=== PATIENT | female | born 1955 | race Caucasian/White ===

== ENCOUNTER 2020-06-26 05:39 | Inpatient (IN) ==
[2020-06-26 06:54] LABS: Basophils # 0.1 10*3/uL (0.0-0.2); Basophils % 0.5 % (0.0-0.8); Eosinophils # 0.2 10*3/uL (0.0-0.87); Hematocrit 38.2 VOL% (35.7-47.0); Hemoglobin 12.2 GM/DL (12.0-16.0); Immature Granulocytes % 0.3 %; Immature Granulocytes Absolute 0.05 #; Lymphocytes # 2.4 10*3/uL (1.4-4.0); Lymphocytes % 15.9 % (21.3-54.2); Mean Corpuscular HGB Conc 31.9 GM/DL (32-36); Mean Corpuscular Volume 95.3 FL (87-102); Mean Platelet Volume 10.2 FL (9.6-12.0); Monocytes % 10.4 % (1.7-12.7); Neutrophils % 71.9 % (38.7-73.9); Platelet Count 657 T/CUMM (130-400); Red Blood Count 4.01 MC/CUMM (3.8-5.5); White Blood Count 15.1 T/CUMM (4-12)
[2020-06-26 07:16] LABS: Bilirubin,Urine Negative (Negative); Blood, Urine Negative (Negative); Glucose,Urine (UA) Negative (Negative); Ketones,Urine Negative (Negative); Nitrite,Urine Negative (Negative); Protein,Urine Negative; Urine Appearance Slightly Hazy (Clear); Urine Color Yellow (Yellow); Urine Specific Gravity 1.014 (1.001-1.035); Urine Urobilinogen < 2.0 EU/DL (0.2-1.0)
[2020-06-26 07:17] LABS: Albumin 3.6 G/DL (3.4-5.0); Bilirubin,Total 0.4 MG/DL (0.2-1.0); Calcium 9.3 MG/DL (8.5-10.1); Osmolality,Calculated 278.7 MOS/KG (273-304); Potassium 3.5 MMOL/L (3.5-5.1); Total Protein 8.2 G/DL (6.4-8.3)
[2020-06-26 07:31] LABS: Barbiturates Screen,Urine Negative (Negative); Benzodiazepines Screen,Urine Positive (Negative); Cannabinoid Screen,Urine Negative (Negative); Opiate Screen,Urine Negative (Negative); Phencyclidine Screen,Urine Negative (Negative)
[2020-06-26 07:32] LABS: RBC,Urine 1 /HPF (0-4); Squamous Epithelial Cell,Urine Rare /HPF (0-10); WBC,Urine 2 /HPF (0-6)
[2020-06-26 07:33] LABS: Bacteria,Urine Moderate /HPF (Few)
[2020-06-26 08:02] LABS: Hypochromasia Slight; Microcytosis 1+
[2020-06-26 08:03] LABS: Ovalocytes Slight; Platelet Estimate Increased
[2020-06-26] MEDS ORDERED: ATROPINE 1 MG/10 ML SYRINGE IV STA (11:04)
[2020-06-26] MEDS ORDERED: SODIUM CHLORIDE 0.9% 1,000 ML IV STA (11:04)
[2020-06-26] MEDS ORDERED: LEVOFLOXACIN INJ 750 MG in PREMIX 1 EACH IV STA (11:34)
[2020-06-26 11:35] LABS: Salicylate < 2.8 MG/DL (2.8-20)
[2020-06-26 11:37] LABS: Acetaminophen < 2.0 UG/ML (10-30)
[2020-06-26 13:37] LABS: Basophils # 0.1 10*3/uL (0.0-0.2); Basophils % 0.5 % (0.0-0.8); Eosinophils # 0.2 10*3/uL (0.0-0.87); Eosinophils % 1.3 % (0.00-10.9); Hematocrit 37.5 VOL% (35.7-47.0); Immature Granulocytes % 0.3 %; Immature Granulocytes Absolute 0.03 #; Lymphocytes # 2.5 10*3/uL (1.4-4.0); Mean Corpuscular Volume 94.9 FL (87-102); Mean Platelet Volume 11.3 FL (9.6-12.0); Monocytes % 11.8 % (1.7-12.7); Neutrophils % 65.1 % (38.7-73.9); Platelet Count 471 T/CUMM (130-400); Red Blood Count 3.95 MC/CUMM (3.8-5.5); Red Cell Distribution Width 14.1 % (9.3-17.3); White Blood Count 11.7 T/CUMM (4-12)
[2020-06-26] MEDS ORDERED: ALBUTEROL 2.5 MG/3 ML NEB RESP TX PRN (15:00)
[2020-06-26] MEDS: SODIUM CHLORIDE 0.9% 1,000 ML IV SCH ×2 (16:36→22:30)
[2020-06-26] MEDS: ENOXAPARIN 40 MG/0.4 ML SYRINGE SUBCUT SCH (17:07)
[2020-06-26] MEDS: PANTOPRAZOLE 40 MG VIAL IV SCH (17:07)
[2020-06-26 19:50] LABS: Basophils # 0.1 10*3/uL (0.0-0.2); Basophils % 0.4 % (0.0-0.8); Eosinophils # 0.2 10*3/uL (0.0-0.87); Eosinophils % 1.2 % (0.00-10.9); Hemoglobin 10.2 GM/DL (12.0-16.0); Immature Granulocytes % 0.3 %; Immature Granulocytes Absolute 0.04 #; Lymphocytes % 15.9 % (21.3-54.2); Mean Corpuscular HGB Conc 30.9 GM/DL (32-36); Mean Corpuscular Volume 99.4 FL (87-102); Mean Platelet Volume 10.1 FL (9.6-12.0); Monocytes % 14.6 % (1.7-12.7); Neutrophils % 67.6 % (38.7-73.9); Platelet Count 387 T/CUMM (130-400); Red Blood Count 3.32 MC/CUMM (3.8-5.5); Red Cell Distribution Width 14.1 % (9.3-17.3); White Blood Count 12.4 T/CUMM (4-12)
[2020-06-26 20:08] LABS: Calcium 8.1 MG/DL (8.5-10.1); Osmolality,Calculated 277.7 MOS/KG (273-304); Potassium 3.4 MMOL/L (3.5-5.1)
[2020-06-26] MEDS ORDERED: HALOPERIDOL 5 MG/ML AMP IM ONE (20:19)
[2020-06-26] MEDS ORDERED: SODIUM CHLORIDE 0.9% 1,000 ML IV ONE (23:35)
[2020-06-26] MEDS ORDERED: PHENYLEPHRINE DRIP 40 MG/250 ML PREMIX IV PRN (23:35)
[2020-06-26 23:44] LABS: Hematocrit 29.7 VOL% (35.7-47.0); Hemoglobin 9.5 GM/DL (12.0-16.0)
[2020-06-27 00:28] LABS: Bilirubin,Urine Negative (Negative); Blood, Urine Moderate mg/dL (Negative); Glucose,Urine (UA) Negative (Negative); Ketones,Urine Negative (Negative); Nitrite,Urine Negative (Negative); Protein,Urine Negative; Urine Appearance Slightly Hazy (Clear); Urine Color Straw (Yellow); Urine Specific Gravity 1.005 (1.001-1.035); Urine Urobilinogen < 2.0 EU/DL (0.2-1.0)
[2020-06-27] MEDS ORDERED: MORPHINE 4 MG/1 ML VIAL IV ONE (00:28)
[2020-06-27] MEDS ORDERED: HYDROmorphone 2 MG/1 ML VIAL IV ONE (00:30)
[2020-06-27 00:39] LABS: Bacteria,Urine Trace /HPF (Few); Squamous Epithelial Cell,Urine Few /HPF (0-10); WBC,Urine 15-20 /HPF (0-6)
[2020-06-27] MEDS: HALOPERIDOL 5 MG/ML AMP IM PRN ×3 (02:39→10:41)
[2020-06-27 03:43] LABS: Basophils % 0.4 % (0.0-0.8); Eosinophils # 0.1 10*3/uL (0.0-0.87); Eosinophils % 1.2 % (0.00-10.9); Hematocrit 28.8 VOL% (35.7-47.0); Hemoglobin 9.1 GM/DL (12.0-16.0); Immature Granulocytes % 0.3 %; Immature Granulocytes Absolute 0.03 #; Lymphocytes # 2.1 10*3/uL (1.4-4.0); Lymphocytes % 22.3 % (21.3-54.2); Mean Corpuscular HGB Conc 31.6 GM/DL (32-36); Mean Corpuscular Volume 97.3 FL (87-102); Mean Platelet Volume 10.1 FL (9.6-12.0); Neutrophils % 63.8 % (38.7-73.9); Platelet Count 381 T/CUMM (130-400); Red Blood Count 2.96 MC/CUMM (3.8-5.5); Red Cell Distribution Width 14.1 % (9.3-17.3); White Blood Count 9.4 T/CUMM (4-12)
[2020-06-27 04:06] LABS: Albumin 2.8 G/DL (3.4-5.0); Bilirubin,Total 0.5 MG/DL (0.2-1.0); Osmolality,Calculated 277.5 MOS/KG (273-304); Potassium 3.2 MMOL/L (3.5-5.1); Total Protein 6.4 G/DL (6.4-8.3)
[2020-06-27] MEDS ORDERED: POTASSIUM CHLORIDE RIDER 20 MEQ in PREMIX 1 EACH IV PRN (05:27)
[2020-06-27] MEDS ORDERED: MAGNESIUM SULF RIDER 2 GM in PREMIX 1 EACH IV PRN (05:27)
[2020-06-27] MEDS ORDERED: MAGNESIUM SULF RIDER 4 GM in PREMIX 1 EACH IV PRN (05:27)
[2020-06-27] MEDS: ACETAMINOPHEN 325 MG TABLET PO PRN ×3 (08:28→21:33)
[2020-06-27] MEDS ORDERED: LEVOFLOXACIN INJ 500 MG in PREMIX 1 EACH IV SCH (09:00)
[2020-06-27] MEDS: LEVOFLOXACIN INJ 750 MG in PREMIX 1 EACH IV SCH (10:14)
[2020-06-27] MEDS ORDERED: LOPERAMIDE 1 MG/7.5 ML 30 ML BOTTLE PO PRN (10:46)
[2020-06-27] MEDS ORDERED: LEVOFLOXACIN INJ 750 MG in PREMIX 1 EACH IV SCH (11:00)
[2020-06-27] MEDS: SODIUM CHLORIDE 0.9% 1,000 ML IV SCH ×3 (11:06→22:48)
[2020-06-27] MEDS: ESCITALOPRAM 10 MG TABLET PO SCH (11:06)
[2020-06-27] MEDS: METOPROLOL TARTRATE 25 MG TABLET PO SCH ×2 (11:06→21:33)
[2020-06-27] MEDS: VANCOMYCIN INJ 1,000 MG in SODIUM CHLORIDE 0.9% 250 ML IV SCH ×2 (12:44→21:34)
[2020-06-27] MEDS: ONDANSETRON 4 MG/2 ML VIAL IV PRN (13:39)
[2020-06-27] MEDS ORDERED: LOPERAMIDE 2 MG CAPSULE PO PRN (15:00)
[2020-06-27] MEDS: ENOXAPARIN 40 MG/0.4 ML SYRINGE SUBCUT SCH (17:31)
[2020-06-27] MEDS: PANTOPRAZOLE 40 MG VIAL IV SCH (17:34)
[2020-06-28 05:06] LABS: Basophils # 0.1 10*3/uL (0.0-0.2); Basophils % 0.4 % (0.0-0.8); Eosinophils % 0.1 % (0.00-10.9); Hematocrit 30.5 VOL% (35.7-47.0); Hemoglobin 9.4 GM/DL (12.0-16.0); Immature Granulocytes % 0.5 %; Immature Granulocytes Absolute 0.06 #; Lymphocytes # 1.7 10*3/uL (1.4-4.0); Lymphocytes % 14.7 % (21.3-54.2); Mean Corpuscular HGB Conc 30.8 GM/DL (32-36); Mean Corpuscular Volume 98.4 FL (87-102); Mean Platelet Volume 11.2 FL (9.6-12.0); Monocytes % 12.9 % (1.7-12.7); Neutrophils % 71.4 % (38.7-73.9); Platelet Count 340 T/CUMM (130-400); White Blood Count 11.6 T/CUMM (4-12)
[2020-06-28 05:13] LABS: Calcium 8.8 MG/DL (8.5-10.1); Osmolality,Calculated 279.1 MOS/KG (273-304); Potassium 3.4 MMOL/L (3.5-5.1)
[2020-06-28] MEDS: SODIUM CHLORIDE 0.9% 1,000 ML IV SCH ×2 (08:11→16:06)
[2020-06-28] MEDS: METOPROLOL TARTRATE 25 MG TABLET PO SCH ×2 (08:56→20:20)
[2020-06-28] MEDS: ESCITALOPRAM 10 MG TABLET PO SCH (08:57)
[2020-06-28] MEDS: VANCOMYCIN INJ 1,000 MG in SODIUM CHLORIDE 0.9% 250 ML IV SCH (08:57)
[2020-06-28] MEDS: ACETAMINOPHEN 325 MG TABLET PO PRN ×2 (10:15→15:30)
[2020-06-28] MEDS: LEVOFLOXACIN INJ 750 MG in PREMIX 1 EACH IV SCH (10:57)
[2020-06-28] MEDS: ENOXAPARIN 40 MG/0.4 ML SYRINGE SUBCUT SCH (20:20)
[2020-06-29] MEDS: SODIUM CHLORIDE 0.9% 1,000 ML IV SCH (00:21)
[2020-06-29 05:47] LABS: Osmolality,Calculated 275.4 MOS/KG (273-304); Potassium 2.6 MMOL/L (3.5-5.1)
[2020-06-29] MEDS: POTASSIUM CHLORIDE RIDER 10 MEQ in PREMIX 1 EACH IV PRN ×7 (06:24→22:00)
[2020-06-29] MEDS: METOPROLOL TARTRATE 25 MG TABLET PO SCH ×2 (08:21→20:34)
[2020-06-29] MEDS: ESCITALOPRAM 10 MG TABLET PO SCH (08:21)
[2020-06-29] MEDS: LEVOFLOXACIN 500 MG TABLET PO SCH (08:21)
[2020-06-29] MEDS: ENOXAPARIN 40 MG/0.4 ML SYRINGE SUBCUT SCH (20:34)
[2020-06-30] MEDS: SODIUM CHLORIDE 0.9% 1,000 ML IV SCH ×2 (00:05→23:21)
[2020-06-30] MEDS: POTASSIUM CHLORIDE RIDER 10 MEQ in PREMIX 1 EACH IV PRN ×5 (00:05→17:16)
[2020-06-30 06:29] LABS: Calcium 9.4 MG/DL (8.5-10.1); Osmolality,Calculated 271.7 MOS/KG (273-304); Potassium 3.4 MMOL/L (3.5-5.1)
[2020-06-30] MEDS ORDERED: DEXAMETHASONE 4 MG/1 ML VIAL IV SCH (09:00)
[2020-06-30] MEDS: LEVOFLOXACIN 500 MG TABLET PO SCH (09:09)
[2020-06-30] MEDS: METOPROLOL TARTRATE 25 MG TABLET PO SCH ×2 (09:09→21:23)
[2020-06-30] MEDS: CHOLECALCIFEROL 1,000 UNIT TABLET PO SCH (09:09)
[2020-06-30] MEDS: ASCORBIC ACID 500 MG TABLET PO SCH ×2 (09:09→21:23)
[2020-06-30] MEDS: ZINC GLUCONATE 50 MG TABLET PO SCH (09:09)
[2020-06-30] MEDS: ESCITALOPRAM 10 MG TABLET PO SCH (09:09)
[2020-06-30] MEDS: ONDANSETRON 4 MG/2 ML VIAL IV PRN ×2 (11:02→17:16)
[2020-06-30] MEDS: ENOXAPARIN 40 MG/0.4 ML SYRINGE SUBCUT SCH (21:23)
[2020-07-01 05:28] LABS: Basophils # 0.1 10*3/uL (0.0-0.2); Eosinophils # 0.2 10*3/uL (0.0-0.87); Eosinophils % 2.2 % (0.00-10.9); Hematocrit 31.5 VOL% (35.7-47.0); Immature Granulocytes % 0.4 %; Immature Granulocytes Absolute 0.04 #; Lymphocytes # 3.4 10*3/uL (1.4-4.0); Lymphocytes % 33.4 % (21.3-54.2); Mean Corpuscular HGB Conc 31.7 GM/DL (32-36); Mean Corpuscular Volume 97.2 FL (87-102); Mean Platelet Volume 11.1 FL (9.6-12.0); Monocytes % 10.9 % (1.7-12.7); Neutrophils % 52.1 % (38.7-73.9); Platelet Count 386 T/CUMM (130-400); Red Blood Count 3.24 MC/CUMM (3.8-5.5); Red Cell Distribution Width 14.5 % (9.3-17.3); White Blood Count 10.1 T/CUMM (4-12)
[2020-07-01 05:49] LABS: Ferritin 159.8 ng/ml (8-252)
[2020-07-01 05:55] LABS: Bilirubin,Total 0.6 MG/DL (0.2-1.0); Calcium 9.1 MG/DL (8.5-10.1); Osmolality,Calculated 273.5 MOS/KG (273-304); Potassium 3.2 MMOL/L (3.5-5.1); Total Protein 6.8 G/DL (6.4-8.3)
[2020-07-01] MEDS: METOPROLOL TARTRATE 25 MG TABLET PO SCH ×2 (08:54→21:04)
[2020-07-01] MEDS: ONDANSETRON 4 MG/2 ML VIAL IV PRN (08:54)
[2020-07-01] MEDS: ASCORBIC ACID 500 MG TABLET PO SCH ×2 (08:54→21:04)
[2020-07-01] MEDS: LEVOFLOXACIN 500 MG TABLET PO SCH (08:54)
[2020-07-01] MEDS: ZINC GLUCONATE 50 MG TABLET PO SCH (08:54)
[2020-07-01] MEDS: CHOLECALCIFEROL 1,000 UNIT TABLET PO SCH (08:54)
[2020-07-01] MEDS: ESCITALOPRAM 10 MG TABLET PO SCH (08:54)
[2020-07-01] MEDS: POTASSIUM CHLORIDE 20 MEQ TABLET PO PRN ×4 (15:38→23:56)
[2020-07-01] MEDS: ENOXAPARIN 40 MG/0.4 ML SYRINGE SUBCUT SCH (21:04)
[2020-07-01] MEDS: SODIUM CHLORIDE 0.9% 1,000 ML IV SCH (21:07)
[2020-07-02] MEDS: ACETAMINOPHEN 325 MG TABLET PO PRN ×2 (01:06→17:06)
[2020-07-02 07:02] LABS: Bilirubin,Total 0.8 MG/DL (0.2-1.0); Calcium 9.4 MG/DL (8.5-10.1); Osmolality,Calculated 274.5 MOS/KG (273-304); Potassium 3.7 MMOL/L (3.5-5.1); Total Protein 6.9 G/DL (6.4-8.3)
[2020-07-02 07:10] LABS: Basophils # 0.1 10*3/uL (0.0-0.2); Basophils % 0.7 % (0.0-0.8); Eosinophils # 0.2 10*3/uL (0.0-0.87); Eosinophils % 2.3 % (0.00-10.9); Hematocrit 34.1 VOL% (35.7-47.0); Hemoglobin 10.9 GM/DL (12.0-16.0); Immature Granulocytes % 0.6 %; Immature Granulocytes Absolute 0.06 #; Lymphocytes # 3.4 10*3/uL (1.4-4.0); Lymphocytes % 33.5 % (21.3-54.2); Mean Corpuscular Volume 96.1 FL (87-102); Mean Platelet Volume 11.7 FL (9.6-12.0); Monocytes % 10.7 % (1.7-12.7); Neutrophils % 52.2 % (38.7-73.9); Platelet Count 316 T/CUMM (130-400); Red Blood Count 3.55 MC/CUMM (3.8-5.5); Red Cell Distribution Width 14.7 % (9.3-17.3); White Blood Count 10.1 T/CUMM (4-12)
[2020-07-02 07:25] LABS: Ferritin 141.2 ng/ml (8-252)
[2020-07-02] MEDS: ESCITALOPRAM 10 MG TABLET PO SCH (10:29)
[2020-07-02] MEDS: LEVOFLOXACIN 500 MG TABLET PO SCH (10:30)
[2020-07-02] MEDS: ZINC GLUCONATE 50 MG TABLET PO SCH (10:31)
[2020-07-02] MEDS: METOPROLOL TARTRATE 25 MG TABLET PO SCH ×2 (10:31→21:14)
[2020-07-02] MEDS: ASCORBIC ACID 500 MG TABLET PO SCH ×2 (10:31→21:14)
[2020-07-02] MEDS: ONDANSETRON 4 MG/2 ML VIAL IV PRN (10:44)
[2020-07-02] MEDS: CHOLECALCIFEROL 1,000 UNIT TABLET PO SCH (18:02)
[2020-07-02] MEDS: SODIUM CHLORIDE 0.9% 1,000 ML IV SCH (19:59)
[2020-07-02] MEDS: ENOXAPARIN 40 MG/0.4 ML SYRINGE SUBCUT SCH (21:14)
[2020-07-02] MEDS: MELATONIN 3 MG TABLET PO PRN (21:14)
[2020-07-03 06:27] LABS: Basophils # 0.1 10*3/uL (0.0-0.2); Basophils % 0.7 % (0.0-0.8); Eosinophils # 0.2 10*3/uL (0.0-0.87); Eosinophils % 2.6 % (0.00-10.9); Hematocrit 32.9 VOL% (35.7-47.0); Hemoglobin 10.5 GM/DL (12.0-16.0); Immature Granulocytes % 0.3 %; Immature Granulocytes Absolute 0.03 #; Lymphocytes % 34.8 % (21.3-54.2); Mean Corpuscular HGB Conc 31.9 GM/DL (32-36); Mean Corpuscular Volume 99.1 FL (87-102); Mean Platelet Volume 10.9 FL (9.6-12.0); Monocytes % 9.9 % (1.7-12.7); Neutrophils % 51.7 % (38.7-73.9); Platelet Count 342 T/CUMM (130-400); Red Blood Count 3.32 MC/CUMM (3.8-5.5); Red Cell Distribution Width 15.1 % (9.3-17.3); White Blood Count 8.7 T/CUMM (4-12)
[2020-07-03 08:06] LABS: Alanine Aminotransferase 20 U/L (13-56); Alkaline Phosphatase 152 U/L (45-117); Aspartate Amino Transferase 16 U/L (0-37); Bilirubin,Total < 0.39 MG/DL (0.2-1.0); Blood Urea Nitrogen 7 MG/DL (7-18); Calcium 8.9 MG/DL (8.5-10.1); Carbon Dioxide 27 MMOL/L (21-32); Estimated Glom Filtration Rate 101 ML/MIN; Glucose 96 MG/DL (74-106); Osmolality,Calculated 272.7 MOS/KG (273-304); Potassium 3.6 MMOL/L (3.5-5.1); Sodium 138 MMOL/L (136-145); Total Protein 6.6 G/DL (6.4-8.3)
[2020-07-03 08:12] LABS: Ferritin 119.4 ng/ml (8-252)
[2020-07-03] MEDS: ESCITALOPRAM 10 MG TABLET PO SCH (10:10)
[2020-07-03] MEDS: CHOLECALCIFEROL 1,000 UNIT TABLET PO SCH (10:10)
[2020-07-03] MEDS: ASCORBIC ACID 500 MG TABLET PO SCH ×2 (10:10→20:35)
[2020-07-03] MEDS: LEVOFLOXACIN 500 MG TABLET PO SCH (10:10)
[2020-07-03] MEDS: ZINC GLUCONATE 50 MG TABLET PO SCH (10:11)
[2020-07-03] MEDS: ONDANSETRON 4 MG/2 ML VIAL IV PRN (10:52)
[2020-07-03] MEDS: METOPROLOL TARTRATE 25 MG TABLET PO SCH ×2 (12:06→20:35)
[2020-07-03] MEDS: lisinopriL 5 MG TABLET PO SCH (14:38)
[2020-07-03] MEDS: SODIUM CHLORIDE 0.9% 1,000 ML IV SCH (19:19)
[2020-07-03] MEDS: ENOXAPARIN 40 MG/0.4 ML SYRINGE SUBCUT SCH (20:35)
[2020-07-03] MEDS: MELATONIN 3 MG TABLET PO PRN (20:35)
[2020-07-04 00:27] LABS: CDT Result Negative (Negative); CDT Specimen Source STOOL
[2020-07-04] MEDS: SODIUM CHLORIDE 0.9% 1,000 ML IV SCH (05:43)
[2020-07-04 07:25] LABS: Basophils # 0.1 10*3/uL (0.0-0.2); Basophils % 0.7 % (0.0-0.8); Eosinophils # 0.2 10*3/uL (0.0-0.87); Eosinophils % 2.5 % (0.00-10.9); Hematocrit 32.5 VOL% (35.7-47.0); Hemoglobin 10.1 GM/DL (12.0-16.0); Immature Granulocytes Absolute 0.08 #; Lymphocytes # 2.9 10*3/uL (1.4-4.0); Lymphocytes % 36.2 % (21.3-54.2); Mean Corpuscular HGB Conc 31.1 GM/DL (32-36); Mean Corpuscular Volume 103.2 FL (87-102); Mean Platelet Volume 12.2 FL (9.6-12.0); Monocytes % 10.2 % (1.7-12.7); Neutrophils % 49.4 % (38.7-73.9); Platelet Count 214 T/CUMM (130-400); Red Blood Count 3.15 MC/CUMM (3.8-5.5); Red Cell Distribution Width 15.2 % (9.3-17.3); White Blood Count 8.1 T/CUMM (4-12)
[2020-07-04 07:28] LABS: Ferritin 119.5 ng/ml (8-252)
[2020-07-04 08:02] LABS: Osmolality,Calculated 274.5 MOS/KG (273-304); Potassium 3.4 MMOL/L (3.5-5.1)
[2020-07-04] MEDS: LEVOFLOXACIN 500 MG TABLET PO SCH (09:29)
[2020-07-04] MEDS: ESCITALOPRAM 10 MG TABLET PO SCH (09:29)
[2020-07-04] MEDS: METOPROLOL TARTRATE 25 MG TABLET PO SCH ×2 (09:30→20:51)
[2020-07-04] MEDS: ASCORBIC ACID 500 MG TABLET PO SCH ×2 (09:30→20:51)
[2020-07-04] MEDS: CHOLECALCIFEROL 1,000 UNIT TABLET PO SCH (09:30)
[2020-07-04] MEDS: lisinopriL 5 MG TABLET PO SCH (09:30)
[2020-07-04] MEDS: POTASSIUM CHLORIDE 20 MEQ TABLET PO PRN ×3 (09:31→16:50)
[2020-07-04] MEDS: PANTOPRAZOLE 40 MG TABLET PO SCH (09:31)
[2020-07-04] MEDS: ZINC GLUCONATE 50 MG TABLET PO SCH (09:31)
[2020-07-04] MEDS: ONDANSETRON 4 MG/2 ML VIAL IV PRN (09:32)
[2020-07-04] MEDS: MELATONIN 3 MG TABLET PO PRN (20:51)
[2020-07-04] MEDS: ENOXAPARIN 40 MG/0.4 ML SYRINGE SUBCUT SCH (20:51)
[2020-07-05 04:26] LABS: Calcium 8.5 MG/DL (8.5-10.1); Osmolality,Calculated 277.4 MOS/KG (273-304)
[2020-07-05] MEDS: lisinopriL 5 MG TABLET PO SCH (09:10)
[2020-07-05] MEDS: ZINC GLUCONATE 50 MG TABLET PO SCH (09:10)
[2020-07-05] MEDS: CHOLECALCIFEROL 1,000 UNIT TABLET PO SCH (09:10)
[2020-07-05] MEDS: PANTOPRAZOLE 40 MG TABLET PO SCH (09:10)
[2020-07-05] MEDS: ESCITALOPRAM 10 MG TABLET PO SCH (09:12)
[2020-07-05] MEDS: METOPROLOL TARTRATE 25 MG TABLET PO SCH (09:12)
[2020-07-05] MEDS: ASCORBIC ACID 500 MG TABLET PO SCH (09:12)
[2020-07-05 11:31] VITALS: BP 119/70
== END 2020-07-05 14:48 | disposition home health service (06) | DRG 917 ==
LOC: EDBD → EDUNIT# → N.ED 05:39 → N.EDINP 13:59 → SUATTDRO 13:59 → N.ICU 14:33 → N.5E 06-27 12:50 → N.2E 06-29 17:23
PROVIDERS: ADMIT Emergency Medicine; ATTEND Internal Medicine